=== PATIENT | male | born 1965 | race Caucasian/White ===

== ENCOUNTER 2017-03-05 23:27 | Emergency (ER) | payer OTHER ==
[2017-03-06] MEDS ORDERED: OXYCODONE-ACETAMINOPHEN 5-325 MG TABLET PO ONE (00:39)
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
[2017-03-06] MEDS ORDERED: IBUPROFEN 600 MG TABLET PO ONE (02:17)
== END 2017-03-06 02:20 | disposition home or self-care (01) ==
LOC: ER 23:27
DX: M25.551 Pain in right hip (principal); V87.7XXA Person injured in collision between other specified motor vehicles (traffic), initial encounter; F17.200 Nicotine dependence, unspecified, uncomplicated; Z98.890 Other specified postprocedural states
CPT/HCPCS: 72170; 99284